=== PATIENT | male | born 1965 | race Caucasian/White ===

== ENCOUNTER 2017-04-24 07:14 | Emergency (ER) | payer OTHER ==
[~2017-04-24] VITALS: Ht 167.6 cm; Wt 78.1 kg
[~2017-04-24 07:14] MED LIST: ADV500INH INH; ALBU17IN INH; ALBU83IN INH; AZIT500T2 PO; MUCI600T37 PO; NICO14DI20 TD; PRED10TA PO
[2017-04-24] MEDS ORDERED: methylPREDNISolone INJ 125 MG/2 ML VIAL (J2930) IV ONE (07:45)
[2017-04-24] MEDS: IPRATROPIUM 0.5MG/ALBUTEROL 2.5MG INH SOL UD 3ML (DUONEB)(J7620) NEB PRN ×3 (07:58→08:17)
[2017-04-24] MEDS: IPRATROPIUM 0.5MG/ALBUTEROL 2.5MG INH SOL UD 3ML (DUONEB)(J7620) NEB SCH ×3 (09:36→09:56)
[2017-04-24 11:14] VITALS: O2SAT 92
[2017-04-24] MEDS ORDERED: PRED20TA PO (11:34)
[2017-04-24 11:38] VITALS: BP 113/65
== END 2017-04-24 11:44 | disposition home or self-care (01) ==
LOC: M ED 07:14
DX: J45.901 Unspecified asthma with (acute) exacerbation (principal)
CPT/HCPCS: 36415; 93041; 94640; 94760; 96374; 99285; J2930

== ENCOUNTER 2019-11-29 09:46 | Emergency (ER) | payer OTHER ==
[~2019-11-29] VITALS: Ht 167.6 cm; Wt 77.3 kg
[~2019-11-29 09:46] MED LIST changes: -AZIT500T2 PO; +AZIT500T5 PO; +PRED-351 PO; -PRED10TA PO; +PRED20TA PO
[2019-11-29] MEDS ORDERED: LORA-674 (10:14)
[2019-11-29] MEDS ORDERED: COMBIVENT RESPIMAT 100-20MCG INHALER 4GM INH ONE ×2 (10:30→11:45)
[2019-11-29] MEDS ORDERED: methylPREDNISolone INJ 125 MG/2 ML VIAL (J2930) IV ONE (10:30)
[2019-11-29] MEDS ORDERED: NS 1,000 ML IV ONE (10:30)
[2019-11-29] MEDS ORDERED: AZITHROMYCIN 250MG TABLET PO ONE (10:30)
[2019-11-29 10:54] LABS: VENOUS BASE EXCESS -2.1 (-2.0-2.0); VENOUS HCO3 23.2 MEQ/L (23.0-27.0); VENOUS O2 SATURATION 94.2 % (60.0-80.0); VENOUS PARTIAL PRESSURE CO2 41.7 mmHg (38.0-50.0); VENOUS PARTIAL PRESSURE O2 74.1 mmHg (30.0-50.0); VENOUS PH 7.364 UNITS (7.330-7.430); VENOUS STANDARD HCO3 22.7 MEQ/L; VENOUS TOTAL CO2 24.5 MEQ/L (24.0-28.0)
[2019-11-29 10:58] LABS: BASO # 0.1 10^3/uL (0.0-0.2); BASO % 1.4 % (0.0-1.0); EOS # 0.6 10^3/uL (0.0-0.5); EOS % 6.4 % (0.0-3.0); HEMATOCRIT 46.9 % (42.0-52.0); HEMOGLOBIN 15.9 g/dl (13.5-17.5); LYMPH # 2.3 10^3/uL (1.5-5.0); LYMPH % 27.1 % (24.0-44.0); MEAN CORPUSCULAR HEMOGLOBIN 33.7 pg (27.0-33.0); MEAN CORPUSCULAR HGB CONC 33.9 g/dl (32.0-36.5); MEAN CORPUSCULAR VOLUME 99.4 fl (80.0-96.0); MONO # 0.9 10^3/uL (0.0-0.8); MONO % 10.8 % (0.0-5.0); NEUTROPHILS # 4.6 10^3/uL (1.5-8.5); NEUTROPHILS % 53.7 % (36.0-66.0); PLATELET COUNT, AUTOMATED 231 10^3/uL (150-450); RED BLOOD COUNT 4.72 10^6/uL (4.30-6.10); WHITE BLOOD COUNT 8.6 10^3/uL (4.0-10.0)
--- NOTE | 2019-11-29 11:13 | REP ---
CHEST, SINGLE VIEW: There is no evidence of acute infiltrate. No pleural effusion is seen. The heart is normal in size. The mediastinal silhouette is unremarkable. The visualized osseous structures are intact. IMPRESSION: No acute pulmonary disease. Electronically Signed by Nikolay Jones MD 11/29/2019 04:18 P
[2019-11-29 11:27] LABS: ALT/SGPT 60 U/L (12-78); BILIRUBIN,DIRECT 0.3 MG/DL (0.0-0.2); BILIRUBIN,TOTAL 1.1 MG/DL (0.2-1.0); BLOOD UREA NITROGEN 10 MG/DL (7-18); CALCIUM LEVEL 8.9 MG/DL (8.5-10.1); CARBON DIOXIDE LEVEL 26 MEQ/L (21-32); CHLORIDE LEVEL 108 MEQ/L (98-107); CK-MB VALUE MASS 4.1 NG/ML (<3.6); CPK CREATINE PHOSPHOKINASE 194 U/L (39-308); CREATININE FOR GFR 0.78 MG/DL (0.70-1.30); GLOMERULAR FILTRATION RATE > 60.0 (>56); GLUCOSE, FASTING 100 MG/DL (70-100); MB/CK RELATIVE INDEX 2.11 (< OR =4); NT-PRO BNP 26 PG/ML (<125); POTASSIUM SERUM 4.4 MEQ/L (3.5-5.1); SODIUM LEVEL 141 MEQ/L (136-145); THYROID STIMULATING HORMONE 0.838 uIU/ML (0.358-3.740); TOTAL PROTEIN 7.3 GM/DL (6.4-8.2); TROPONIN I < 0.02 NG/ML (< 0.10)
[2019-11-29] MEDS ORDERED: ALBU1.25 NEB ×2 (12:06→15:34)
[2019-11-29] MEDS ORDERED: AZIT500T5 PO ×2 (12:06→15:34)
[2019-11-29] MEDS ORDERED: PRED20TA PO ×2 (12:06→15:34)
[2019-11-29] MEDS ORDERED: PROAAER10 INH (14:58)
[2019-11-29 15:00] VITALS: BP 135/75
[2019-11-29] MEDS ORDERED: ALBU83IN INH (15:34)
[2019-11-29 16:41] VITALS: O2SAT 90
--- NOTE | 2019-11-30 09:59 | ECGEPIP ---
[facility] - ED Test Date: 2019-11-29 Pat Name: MYRIAM LOMBARDI Department: Room: - Gender: Male Chaperon: ry : 1965 Requested By: ELLIS ADAMS Order Number: [id number] Reading MD: Milton Ashford Measurements Intervals [place] Rate: 91 P: 84 UT: 162 QRS: 88 QRSD: 108 T: 0 QT: 355 QTc: 437 Interpretive Statements SINUS RHYTHM MODERATE INTRAVENTRICULAR CONDUCTION DELAY10/08/15 NONSPECIFIC T-WAVE ABNORMALITY SIMILAR TO 10/08/15 Electronically Signed on 11-30-2019 9:58:39 EDT by Milton Ashford
== END 2019-11-29 15:53 | disposition home or self-care (01) ==
LOC: M ED 09:46
DX: J44.1 Chronic obstructive pulmonary disease with (acute) exacerbation (principal); F17.210 Nicotine dependence, cigarettes, uncomplicated; Z79.51 Long term (current) use of inhaled steroids; Z79.899 Other long term (current) drug therapy
CPT/HCPCS: 36415; 71045; 80048; 80076; 82550; 82553; 82803; 83880; 84443; 84484; 85025; 87040; 87070; 87205; 87486; 87581; 87633; 87798; 93005; 93041; 94640; 94760; 96361; 96374; 99285; J2930; U0002

== ENCOUNTER 2023-03-01 04:05 | Observation (INO) | payer OTHER ==
[~2023-03-01] VITALS: Ht 198.1 cm; Wt 78.9 kg
[~2023-03-01 04:05] MED LIST changes: +ALBU1.25 NEB; +ALBU2.5V10 INH; -ALBU83IN INH; +LORA-674 PO; +PROAAER10 INH
[2023-03-01] MEDS: IPRATROPIUM 0.5MG/ALBUTEROL 2.5MG INH SOL UD 3ML (DUONEB) NEB PRN ×2 (04:53→04:55)
[2023-03-01 05:16] LABS: BASO # 0.1 10^3/uL (0.0-0.2); BASO % 1.3 % (0.0-1.0); EOS # 0.8 10^3/uL (0.0-0.5); EOS % 7.7 % (0.0-3.0); HEMATOCRIT 46.4 % (42.0-52.0); HEMOGLOBIN 15.7 g/dl (13.5-17.5); LYMPH # 1.7 10^3/uL (1.5-5.0); MEAN CORPUSCULAR HEMOGLOBIN 34.1 pg (27.0-33.0); MEAN CORPUSCULAR HGB CONC 33.8 g/dl (32.0-36.5); MEAN CORPUSCULAR VOLUME 100.7 fl (80.0-96.0); MONO # 0.9 10^3/uL (0.0-0.8); MONO % 8.9 % (2.0-8.0); NEUTROPHILS # 6.3 10^3/uL (1.5-8.5); NEUTROPHILS % 64.7 % (36.0-66.0); PLATELET COUNT, AUTOMATED 252 10^3/uL (150-450); RED BLOOD COUNT 4.61 10^6/uL (4.30-6.10); WHITE BLOOD COUNT 9.7 10^3/uL (4.0-10.0)
[2023-03-01 05:25] LABS: ALBUMIN 4.2 G/DL (3.2-5.2); ALKALINE PHOSPHATASE 63 U/L (46-116); ALT/SGPT 38 U/L (7.0-40); AST/SGOT 23 U/L (<34); BILIRUBIN,DIRECT 0.5 MG/DL (<0.4); BILIRUBIN,TOTAL 1.5 MG/DL (0.3-1.2); BLOOD UREA NITROGEN 10 MG/DL (9-23); CARBON DIOXIDE LEVEL 24 MMOL/L (20-31); CHLORIDE LEVEL 107 MMOL/L (98-107); CREATININE FOR GFR 0.65 MG/DL (0.70-1.30); GLOMERULAR FILTRATION RATE > 60.0 (>56); GLUCOSE, FASTING 107 MG/DL (60-100); POTASSIUM SERUM 4.3 MMOL/L (3.5-5.1); SODIUM LEVEL 141 MMOL/L (136-145); TOTAL PROTEIN 7.2 G/DL (5.7-8.2)
[2023-03-01] MEDS ORDERED: MAG SULF 1GM/100ML (MAG RUN) 2 GM in IV 1 EA IV ONE (05:50)
[2023-03-01 06:35] LABS: ABG BASE EXCESS 0.4 (-2.0-2.0); ABG HCO3 24.6 MMOL/L (22.0-26.0); ABG O2 SATURATION 92.5 % (95.0-99.0); ABG PARTIAL PRESSURE CO2 38.4 mmHg (35.0-45.0); ABG STANDARD HCO3 24.7 MMOL/L. (22.0-26.0); ABG TOTAL CO2 25.8 MMOL/L (22.0-29.0); ABG pH (ARTERIAL) 7.424 UNITS (7.350-7.450)
[2023-03-01] MEDS ORDERED: IPRATROPIUM 0.5MG/ALBUTEROL 2.5MG INH SOL UD 3ML (DUONEB) NEB ONE (07:35)
[2023-03-01] MEDS ORDERED: ACETAMINOPHEN TAB 650MG DOSE (2X325MG) PO PRN (08:05)
[2023-03-01] MEDS ORDERED: ALBUTEROL SULFATE 2.5MG/0.5ML INH NEB SOLN NEB PRN (08:05)
[2023-03-01] MEDS ORDERED: MED REC IN PROGRESS XX SCH (08:10)
[2023-03-01] MEDS ORDERED: HOME MED LIST COMPLETE! XX SCH (08:45)
[2023-03-01] MEDS ORDERED: predniSONE 20 MG TAB PO SCH (09:00)
[2023-03-01] MEDS ORDERED: LORATADINE 10 MG TAB PO PRN (10:15)
[2023-03-01 10:16] LABS: INR 0.91; PARTIAL THROMBOPLASTIN TIME 29.9 SECONDS (24.8-34.2); PROTHROMBIN TIME 12.4 SECONDS (12.5-14.5)
[2023-03-01] MEDS: IPRATROPIUM 0.5MG/ALBUTEROL 2.5MG INH SOL UD 3ML (DUONEB) NEB SCH ×4 (11:29→20:54)
[2023-03-01] MEDS: ENOXAPARIN 40MG/0.4ML SYRINGE (J1650 PER 10MG) SC SCH (11:29)
[2023-03-01 11:40] LABS: D-DIMER QUANT 319.3 ng/ml (<500)
[2023-03-01] MEDS: ADVAIR HFA 230/21MCG INHALER INH SCH ×2 (11:53→20:54)
[2023-03-01 13:30] VITALS: BP 143/89; TEMP 98.2; O2SAT 93
[2023-03-01 20:00] VITALS: BP 119/66; TEMP 98.1; O2SAT 92
[2023-03-01 21:33] VITALS: O2SAT 93
[2023-03-02 05:34] LABS: HEMATOCRIT 42.2 % (42.0-52.0); HEMOGLOBIN 14.4 g/dl (13.5-17.5); MEAN CORPUSCULAR HEMOGLOBIN 33.9 pg (27.0-33.0); MEAN CORPUSCULAR HGB CONC 34.1 g/dl (32.0-36.5); MEAN CORPUSCULAR VOLUME 99.3 fl (80.0-96.0); PLATELET COUNT, AUTOMATED 224 10^3/uL (150-450); RED BLOOD COUNT 4.25 10^6/uL (4.30-6.10); WHITE BLOOD COUNT 19.3 10^3/uL (4.0-10.0)
[2023-03-02 06:00] VITALS: BP 115/65; TEMP 98.4; O2SAT 93
[2023-03-02 06:17] LABS: ALBUMIN 3.5 G/DL (3.2-5.2); ALKALINE PHOSPHATASE 57 U/L (46-116); ALT/SGPT 27 U/L (7.0-40); AST/SGOT 10 U/L (<34); BILIRUBIN,TOTAL 0.8 MG/DL (0.3-1.2); BLOOD UREA NITROGEN 12 MG/DL (9-23); CALCIUM LEVEL 8.8 MG/DL (8.5-10.1); CARBON DIOXIDE LEVEL 24 MMOL/L (20-31); CHLORIDE LEVEL 107 MMOL/L (98-107); CREATININE FOR GFR 0.61 MG/DL (0.70-1.30); GLOMERULAR FILTRATION RATE > 60.0 (>56); GLUCOSE, FASTING 134 MG/DL (60-100); POTASSIUM SERUM 4.3 MMOL/L (3.5-5.1); SODIUM LEVEL 139 MMOL/L (136-145); TOTAL PROTEIN 6.3 G/DL (5.7-8.2)
[2023-03-02] MEDS: ADVAIR HFA 230/21MCG INHALER INH SCH (07:10)
[2023-03-02] MEDS: IPRATROPIUM 0.5MG/ALBUTEROL 2.5MG INH SOL UD 3ML (DUONEB) NEB SCH ×2 (07:10→11:12)
[2023-03-02] MEDS: ENOXAPARIN 40MG/0.4ML SYRINGE (J1650 PER 10MG) SC SCH (08:37)
[2023-03-02] MEDS ORDERED: PRED20TA PO (10:47)
[2023-03-02 11:00] VITALS: O2SAT 92
[2023-03-02] MEDS ORDERED: ALBU1.25 NEB (11:56)
== END 2023-03-02 12:16 | disposition home or self-care (01) ==
LOC: M ED 04:05 → M ED INP 08:03 → ENRESERV 12:09 → M MSPAV 13:06
PROVIDERS: ADMIT Internal Medicine; ATTEND Internal Medicine
DX: J44.1 Chronic obstructive pulmonary disease with (acute) exacerbation (principal); R09.02 Hypoxemia; J45.40 Moderate persistent asthma, uncomplicated; R06.02 Shortness of breath; F17.219 Nicotine dependence, cigarettes, with unspecified nicotine-induced disorders; Z79.51 Long term (current) use of inhaled steroids
CPT/HCPCS: 36415; 36600; 71045; 80048; 80053; 80076; 82803; 83605; 83880; 84484; 85025; 85027; 85379; 85610; 85730; 87040; 87486; 87581; 87633; 87798; 93005; 93041; 94640; 94760; 96365; 96366; 96372; 96375; 96376; 99285; J1100; J1650; J3475

== ENCOUNTER 2023-08-29 09:04 | Emergency (ER) | payer OTHER ==
[~2023-08-29] VITALS: Ht 167.6 cm; Wt 82.9 kg
[~2023-08-29 09:04] MED LIST changes: +LORA-1041 PO; -LORA-674 PO
[2023-08-29 10:12] LABS: RSV AMPLIFICATION NEGATIVE (NEGATIVE)
[2023-08-29] MEDS ORDERED: dexAMETHasone 20MG/5ML VIAL IV ONE (11:35)
[2023-08-29] MEDS: IPRATROPIUM 0.5MG/ALBUTEROL 2.5MG INH SOL UD 3ML (DUONEB) NEB SCH ×5 (11:45→15:26)
[2023-08-29 12:18] LABS: BLOOD UREA NITROGEN 11 MG/DL (9-23); CARBON DIOXIDE LEVEL 28 MMOL/L (20-31); CHLORIDE LEVEL 107 MMOL/L (98-107); CREATININE FOR GFR 0.69 MG/DL (0.70-1.30); GLOMERULAR FILTRATION RATE > 60.0 (>49); GLUCOSE, FASTING 102 MG/DL (74-106); POTASSIUM SERUM 4.1 MMOL/L (3.5-5.1); SODIUM LEVEL 138 MMOL/L (136-145)
[2023-08-29] MEDS ORDERED: ISOVUE-370 76% 100ML VIAL As Ordered ONE (13:01)
[2023-08-29] MEDS ORDERED: ALBU1.25 INH (14:14)
[2023-08-29] MEDS ORDERED: VENTAER INH (14:14)
[2023-08-29] MEDS ORDERED: HOME MED LIST COMPLETE! XX SCH (14:20)
[2023-08-29] MEDS ORDERED: AZIT500T5 PO (15:32)
[2023-08-29] MEDS ORDERED: PRED10TA2 PO (15:32)
[2023-08-29 15:45] VITALS: BP 139/74; TEMP 98.3; O2SAT 92
== END 2023-08-29 15:59 | disposition home or self-care (01) ==
LOC: M ED 09:04
DX: J44.1 Chronic obstructive pulmonary disease with (acute) exacerbation (principal); F17.210 Nicotine dependence, cigarettes, uncomplicated; F10.10 Alcohol abuse, uncomplicated; Z79.2 Long term (current) use of antibiotics; Z79.52 Long term (current) use of systemic steroids; Z79.51 Long term (current) use of inhaled steroids
CPT/HCPCS: 71046; 71275; 80048; 87486; 87581; 87631; 87633; 87798; 94640; 96374; 99284; J1100; Q9967

== ENCOUNTER 2023-10-02 22:15 | Inpatient (IN) | payer OTHER ==
[~2023-10-02] VITALS: Ht 170.2 cm; Wt 78.0 kg
[~2023-10-02 22:15] MED LIST changes: +ALBU1.25 INH; +PRED10TA2 PO; +VENTAER INH
[2023-10-02 22:49] LABS: BASO # 0.1 10^3/uL (0.0-0.2); BASO % 1.1 % (0.0-1.0); EOS # 0.6 10^3/uL (0.0-0.5); EOS % 6.1 % (0.0-3.0); HEMATOCRIT 43.7 % (42.0-52.0); HEMOGLOBIN 14.7 g/dl (13.5-17.5); LYMPH # 2.1 10^3/uL (1.5-5.0); LYMPH % 22.9 % (24.0-44.0); MEAN CORPUSCULAR HEMOGLOBIN 33.9 pg (27.0-33.0); MEAN CORPUSCULAR HGB CONC 33.6 g/dl (32.0-36.5); MEAN CORPUSCULAR VOLUME 100.7 fl (80.0-96.0); MONO # 0.9 10^3/uL (0.0-0.8); MONO % 9.3 % (2.0-8.0); NEUTROPHILS # 5.5 10^3/uL (1.5-8.5); NEUTROPHILS % 60.2 % (36.0-66.0); PLATELET COUNT, AUTOMATED 252 10^3/uL (150-450); RED BLOOD COUNT 4.34 10^6/uL (4.30-6.10); WHITE BLOOD COUNT 9.1 10^3/uL (4.0-10.0)
[2023-10-02 23:17] LABS: ALBUMIN 3.7 G/DL (3.2-5.2); ALKALINE PHOSPHATASE 63 U/L (46-116); ALT/SGPT 38 U/L (7.0-40); AST/SGOT 21 U/L (<34); BILIRUBIN,DIRECT 0.4 MG/DL (<0.4); BILIRUBIN,TOTAL 1.3 MG/DL (0.3-1.2); BLOOD UREA NITROGEN 12 MG/DL (9-23); CALCIUM LEVEL 8.6 MG/DL (8.3-10.6); CARBON DIOXIDE LEVEL 26 MMOL/L (20-31); CHLORIDE LEVEL 109 MMOL/L (98-107); CREATININE FOR GFR 0.71 MG/DL (0.70-1.30); GLOMERULAR FILTRATION RATE > 60.0 (>49); GLUCOSE, FASTING 114 MG/DL (74-106); SODIUM LEVEL 138 MMOL/L (136-145); TOTAL PROTEIN 6.6 G/DL (5.7-8.2)
[2023-10-02 23:40] LABS: CK-MB VALUE MASS 1.1 NG/ML (<3.6)
[2023-10-02 23:42] LABS: CPK CREATINE PHOSPHOKINASE 128 U/L (46-171); MB/CK RELATIVE INDEX 0.85 (< OR =4)
[2023-10-03] MEDS: IPRATROPIUM 0.5MG/ALBUTEROL 2.5MG INH SOL UD 3ML (DUONEB) NEB SCH ×2 (04:42→08:42)
[2023-10-03] MEDS: methylPREDNISolone 125MG 2ML VIAL IV ONE (04:51)
[2023-10-03 05:00] LABS: VENOUS BASE EXCESS -2.7 (-2.0-2.0); VENOUS HCO3 23.5 MMOL/L (23.0-27.0); VENOUS O2 SATURATION 88.1 % (60.0-80.0); VENOUS PARTIAL PRESSURE CO2 46.1 mmHg (38.0-50.0); VENOUS PARTIAL PRESSURE O2 55.2 mmHg (30.0-50.0); VENOUS PH 7.326 UNITS (7.330-7.430)
[2023-10-03] MEDS ORDERED: guaiFENesin DM LIQ 10ML UD PO PRN (07:55)
[2023-10-03] MEDS: ADVAIR HFA 230/21MCG INHALER INH SCH (08:41)
[2023-10-03 09:01] LABS: INR 0.99; PARTIAL THROMBOPLASTIN TIME 28.4 SECONDS (24.8-34.2); PROTHROMBIN TIME 12.8 SECONDS (12.5-14.5)
[2023-10-03] MEDS: AZITHROMYCIN 250MG TABLET PO SCH (09:02)
[2023-10-03] MEDS ORDERED: HOME MED LIST COMPLETE! XX SCH (09:15)
[2023-10-03] MEDS: methylPREDNISolone 40MG 1ML VIAL IV SCH (11:55)
[2023-10-03 15:00] VITALS: BP 104/76; TEMP 97; O2SAT 90
[2023-10-03] MEDS: RIVAROXABAN 10MG TAB (XARELTO) PO SCH (17:40)
[2023-10-03 19:20] VITALS: O2SAT 90
[2023-10-03 19:29] VITALS: BP 116/74; TEMP 97.9; O2SAT 95
[2023-10-03 23:16] VITALS: O2SAT 93
[2023-10-04 05:21] VITALS: BP 115/71; TEMP 98.1; O2SAT 91
[2023-10-04 10:27] VITALS: BP 114/77
[2023-10-04] MEDS ORDERED: PRED10TA2 PO (11:28)
[2023-10-04] MEDS ORDERED: AZIT500T5 PO (11:28)
[2023-10-04] MEDS ORDERED: GUAI10LI PO (11:28)
== END 2023-10-04 12:40 | disposition home or self-care (01) | DRG 190 ==
LOC: M ED 22:15 → M ED INP 10-03 07:54 → ENRESERV 10-03 14:16 → M MS5PR 10-03 15:00
PROVIDERS: ADMIT Internal Medicine Nephrology; ATTEND Internal Medicine Nephrology
DX: J44.1 Chronic obstructive pulmonary disease with (acute) exacerbation (principal); J96.01 Acute respiratory failure with hypoxia; J45.901 Unspecified asthma with (acute) exacerbation; F17.200 Nicotine dependence, unspecified, uncomplicated; Z71.6 Tobacco abuse counseling; Z79.899 Other long term (current) drug therapy; Z11.52 Encounter for screening for COVID-19

== ENCOUNTER 2023-11-22 18:51 | Observation (INO) | payer OTHER ==
[~2023-11-22] VITALS: Ht 167.6 cm; Wt 84.0 kg
[~2023-11-22 18:51] MED LIST changes: +GUAI10LI PO
[2023-11-22 19:28] LABS: VENOUS BASE EXCESS -0.9 (-2.0-2.0); VENOUS HCO3 24.7 MMOL/L (23.0-27.0); VENOUS O2 SATURATION 86.6 % (60.0-80.0); VENOUS PARTIAL PRESSURE CO2 44.4 mmHg (38.0-50.0); VENOUS PARTIAL PRESSURE O2 51.9 mmHg (30.0-50.0); VENOUS PH 7.364 UNITS (7.330-7.430); VENOUS STANDARD HCO3 23.5 MMOL/L; VENOUS TOTAL CO2 26.1 MMOL/L (24.0-28.0)
[2023-11-22 19:42] LABS: BASO # 0.2 10^3/uL (0.0-0.2); BASO % 1.9 % (0.0-1.0); EOS # 0.9 10^3/uL (0.0-0.5); EOS % 10.3 % (0.0-3.0); HEMATOCRIT 43.4 % (42.0-52.0); HEMOGLOBIN 14.7 g/dl (13.5-17.5); LYMPH # 2.9 10^3/uL (1.5-5.0); LYMPH % 34.7 % (24.0-44.0); MEAN CORPUSCULAR HEMOGLOBIN 34.4 pg (27.0-33.0); MEAN CORPUSCULAR HGB CONC 33.9 g/dl (32.0-36.5); MEAN CORPUSCULAR VOLUME 101.6 fl (80.0-96.0); MONO # 0.9 10^3/uL (0.0-0.8); MONO % 10.6 % (2.0-8.0); NEUTROPHILS # 3.5 10^3/uL (1.5-8.5); NEUTROPHILS % 41.9 % (36.0-66.0); PLATELET COUNT, AUTOMATED 233 10^3/uL (150-450); RED BLOOD COUNT 4.27 10^6/uL (4.30-6.10); WHITE BLOOD COUNT 8.4 10^3/uL (4.0-10.0)
[2023-11-22] MEDS: methylPREDNISolone 125MG 2ML VIAL IV ONE (19:47)
[2023-11-22 20:00] LABS: C REACTIVE PROTEIN QUANTITATIV < 0.40 MG/DL (<1.0)
[2023-11-22 20:01] LABS: ALBUMIN 3.7 G/DL (3.2-5.2); ALKALINE PHOSPHATASE 60 U/L (46-116); ALT/SGPT 34 U/L (7.0-40); AST/SGOT 21 U/L (<34); BILIRUBIN,DIRECT 0.3 MG/DL (<0.4); BILIRUBIN,TOTAL 0.8 MG/DL (0.3-1.2); BLOOD UREA NITROGEN 10 MG/DL (9-23); CALCIUM LEVEL 9.1 MG/DL (8.3-10.6); CARBON DIOXIDE LEVEL 28 MMOL/L (20-31); CHLORIDE LEVEL 108 MMOL/L (98-107); CK-MB VALUE MASS 1.3 NG/ML (<3.6); CREATININE FOR GFR 0.72 MG/DL (0.70-1.30); GLOMERULAR FILTRATION RATE > 60.0 (>49); GLUCOSE, FASTING 104 MG/DL (74-106); POTASSIUM SERUM 4.1 MMOL/L (3.5-5.1); SODIUM LEVEL 141 MMOL/L (136-145); TOTAL PROTEIN 6.6 G/DL (5.7-8.2)
[2023-11-22 20:13] LABS: PROCALCITONIN 0.05 ng/ml
[2023-11-22 20:16] LABS: CPK CREATINE PHOSPHOKINASE 138 U/L (46-171); MB/CK RELATIVE INDEX 0.94 (< OR =4)
[2023-11-22] MEDS: IPRATROPIUM 0.5MG/ALBUTEROL 2.5MG INH SOL UD 3ML (DUONEB) NEB ONE ×3 (20:31→21:30)
[2023-11-22] MEDS ORDERED: ISOVUE-370 76% 100ML VIAL As Ordered ONE (21:59)
[2023-11-22] MEDS ORDERED: LORA-930 PO (22:49)
[2023-11-22] MEDS ORDERED: HOME MED LIST COMPLETE! XX SCH (22:50)
[2023-11-23] VITALS (7 sets, daily range): BP systolic 108–161; BP diastolic 61–98; TEMP 97.9–98.8; O2SAT 88–92
[2023-11-23] MEDS ORDERED: ALBUTEROL SULFATE 2.5MG/0.5ML INH NEB SOLN NEB PRN (01:25)
[2023-11-23] MEDS: IPRATROPIUM 0.5MG/ALBUTEROL 2.5MG INH SOL UD 3ML (DUONEB) NEB SCH (02:00)
[2023-11-23] MEDS: methylPREDNISolone 40MG 1ML VIAL IV SCH ×2 (02:33→16:10)
[2023-11-23] MEDS: NS 500 ML IV SCH (02:34)
[2023-11-23 06:39] LABS: BLOOD UREA NITROGEN 15 MG/DL (9-23); CALCIUM LEVEL 9.1 MG/DL (8.3-10.6); CARBON DIOXIDE LEVEL 25 MMOL/L (20-31); CHLORIDE LEVEL 107 MMOL/L (98-107); CREATININE FOR GFR 0.65 MG/DL (0.70-1.30); GLOMERULAR FILTRATION RATE > 60.0 (>49); GLUCOSE, FASTING 148 MG/DL (74-106); POTASSIUM SERUM 4.5 MMOL/L (3.5-5.1); SODIUM LEVEL 140 MMOL/L (136-145)
[2023-11-23] MEDS ORDERED: LORATADINE 10 MG TAB PO PRN (07:05)
[2023-11-23] MEDS: ADVAIR HFA 230/21MCG INHALER INH SCH (07:23)
[2023-11-23] MEDS: amLODIPine 5 MG TAB PO SCH (13:18)
[2023-11-24 06:00] VITALS: BP 121/66; TEMP 98.2; O2SAT 90
[2023-11-24 06:09] LABS: BASO % 0.1 % (0.0-1.0); HEMATOCRIT 41.8 % (42.0-52.0); LYMPH % 6.1 % (24.0-44.0); MEAN CORPUSCULAR HEMOGLOBIN 33.7 pg (27.0-33.0); MEAN CORPUSCULAR HGB CONC 33.5 g/dl (32.0-36.5); MEAN CORPUSCULAR VOLUME 100.5 fl (80.0-96.0); MONO # 0.8 10^3/uL (0.0-0.8); NEUTROPHILS # 13.9 10^3/uL (1.5-8.5); PLATELET COUNT, AUTOMATED 228 10^3/uL (150-450); RED BLOOD COUNT 4.16 10^6/uL (4.30-6.10); WHITE BLOOD COUNT 15.8 10^3/uL (4.0-10.0)
[2023-11-24 06:37] LABS: BLOOD UREA NITROGEN 15 MG/DL (9-23); CARBON DIOXIDE LEVEL 24 MMOL/L (20-31); CHLORIDE LEVEL 107 MMOL/L (98-107); CREATININE FOR GFR 0.65 MG/DL (0.70-1.30); GLOMERULAR FILTRATION RATE > 60.0 (>49); GLUCOSE, FASTING 123 MG/DL (74-106); MAGNESIUM LEVEL 2.1 MG/DL (1.8-2.4); POTASSIUM SERUM 4.1 MMOL/L (3.5-5.1); SODIUM LEVEL 140 MMOL/L (136-145)
[2023-11-24] MEDS: ENOXAPARIN 40MG/0.4ML SYRINGE (J1650 PER 10MG) SC SCH (09:00)
[2023-11-24 09:02] VITALS: BP 129/66
[2023-11-24] MEDS ORDERED: PRED10TA2 PO (09:33)
[2023-11-24] MEDS ORDERED: VENTAER INH (09:33)
[2023-11-24 10:00] VITALS: O2SAT 91
[2023-11-24 10:02] VITALS: O2SAT 93
[2023-11-24 10:05] VITALS: O2SAT 94
[2023-11-24] MEDS ORDERED: predniSONE 20 MG TAB PO ONE (12:00)
== END 2023-11-24 10:59 | disposition home or self-care (01) ==
LOC: M ED 18:51 → M ED INP 18:52 → M MSPAV 11-23 01:20
PROVIDERS: ADMIT Internal Medicine; ATTEND Internal Medicine
DX: J44.1 Chronic obstructive pulmonary disease with (acute) exacerbation (principal); I10 Essential (primary) hypertension; F17.200 Nicotine dependence, unspecified, uncomplicated; R06.02 Shortness of breath; Z79.51 Long term (current) use of inhaled steroids
CPT/HCPCS: 36415; 71045; 71275; 80048; 80076; 82550; 82553; 82803; 83735; 83880; 84145; 84484; 85025; 86140; 87486; 87581; 87633; 87798; 93005; 93041; 94640; 94760; 96372; 96374; 96376; 99285; J1650; J2919; Q9967

== ENCOUNTER 2024-01-28 05:55 | Inpatient (IN) | payer OTHER ==
[~2024-01-28] VITALS: Ht 167.6 cm; Wt 81.3 kg
[~2024-01-28 05:55] MED LIST changes: +LORA-930 PO
[2024-01-28] MEDS ORDERED: TREL1AER PO (06:32)
[2024-01-28 06:46] LABS: VENOUS BASE EXCESS 0.4 (-2.0-2.0); VENOUS HCO3 25.9 MMOL/L (23.0-27.0); VENOUS O2 SATURATION 77.4 % (60.0-80.0); VENOUS PARTIAL PRESSURE CO2 44.6 mmHg (38.0-50.0); VENOUS PH 7.382 UNITS (7.330-7.430); VENOUS STANDARD HCO3 24.3 MMOL/L; VENOUS TOTAL CO2 27.3 MMOL/L (24.0-28.0)
[2024-01-28 06:58] LABS: BASO # 0.1 10^3/uL (0.0-0.2); BASO % 1.6 % (0.0-1.0); EOS # 0.8 10^3/uL (0.0-0.5); EOS % 13.5 % (0.0-3.0); HEMATOCRIT 45.9 % (42.0-52.0); HEMOGLOBIN 15.4 g/dl (13.5-17.5); LYMPH # 1.7 10^3/uL (1.5-5.0); LYMPH % 26.6 % (24.0-44.0); MEAN CORPUSCULAR HEMOGLOBIN 33.6 pg (27.0-33.0); MEAN CORPUSCULAR HGB CONC 33.6 g/dl (32.0-36.5); MONO # 0.7 10^3/uL (0.0-0.8); MONO % 11.1 % (2.0-8.0); NEUTROPHILS # 2.9 10^3/uL (1.5-8.5); NEUTROPHILS % 46.7 % (36.0-66.0); PLATELET COUNT, AUTOMATED 252 10^3/uL (150-450); RED BLOOD COUNT 4.59 10^6/uL (4.30-6.10); WHITE BLOOD COUNT 6.2 10^3/uL (4.0-10.0)
[2024-01-28 07:31] LABS: CPK CREATINE PHOSPHOKINASE 128 U/L (46-171)
[2024-01-28 07:32] LABS: ALBUMIN 3.9 G/DL (3.2-5.2); ALKALINE PHOSPHATASE 62 U/L (46-116); ALT/SGPT 32 U/L (7.0-40); AST/SGOT 18 U/L (<34); BILIRUBIN,DIRECT 0.6 MG/DL (<0.4); BILIRUBIN,TOTAL 2.3 MG/DL (0.3-1.2); BLOOD UREA NITROGEN 8 MG/DL (9-23); CALCIUM LEVEL 8.9 MG/DL (8.3-10.6); CARBON DIOXIDE LEVEL 25 MMOL/L (20-31); CHLORIDE LEVEL 108 MMOL/L (98-107); CREATININE FOR GFR 0.71 MG/DL (0.70-1.30); GLOMERULAR FILTRATION RATE > 60.0 (>49); GLUCOSE, FASTING 105 MG/DL (74-106); MB/CK RELATIVE INDEX 0.78 (< OR =4); POTASSIUM SERUM 4.8 MMOL/L (3.5-5.1); SODIUM LEVEL 139 MMOL/L (136-145); TOTAL PROTEIN 6.9 G/DL (5.7-8.2)
[2024-01-28] MEDS: ALBUTEROL SULFATE 2.5MG/0.5ML INH NEB SOLN INH ONE (07:53)
[2024-01-28] MEDS: IPRATROPIUM 0.5MG/ALBUTEROL 2.5MG INH SOL UD 3ML (DUONEB) NEB ONE ×2 (07:53→09:19)
[2024-01-28] MEDS: methylPREDNISolone 125MG 2ML VIAL IV ONE (07:54)
[2024-01-28] MEDS: BUDESONIDE 0.5 MG/2 ML INHALATION SUSPENSION NEB SCH (08:00)
[2024-01-28] MEDS: FORMOTEROL FUMARATE 20 MCG/2 ML INHALATION SOLUTION (PERFOROMIST) NEB SCH (08:00)
[2024-01-28 08:28] LABS: CK-MB VALUE MASS 1.2 NG/ML (<3.6)
[2024-01-28 08:30] LABS: CPK CREATINE PHOSPHOKINASE 131 U/L (46-171); MB/CK RELATIVE INDEX 0.91 (< OR =4)
[2024-01-28] MEDS ORDERED: HOME MED LIST COMPLETE! XX SCH (10:10)
[2024-01-28] MEDS ORDERED: GUAI5EL PO (10:14)
[2024-01-28 11:15] VITALS: BP 135/85; TEMP 97.3; O2SAT 92
[2024-01-28] MEDS: AZITHROMYCIN 250MG TABLET PO SCH (11:23)
[2024-01-28] MEDS: predniSONE 20 MG TAB PO SCH (11:23)
[2024-01-28] MEDS ORDERED: ACETAMINOPHEN TAB 650MG DOSE (2X325MG) PO PRN (12:15)
[2024-01-28] MEDS ORDERED: MAALOX 30 ML SUSP *UDC PO PRN (12:15)
[2024-01-28] MEDS ORDERED: MOM 30ML SUSPENSION UDC PO PRN (12:15)
[2024-01-28] MEDS: ENOXAPARIN 40MG/0.4ML SYRINGE (J1650 PER 10MG) SC SCH (12:44)
[2024-01-28] MEDS: guaiFENesin ER TABLET 600 MG TAB PO SCH (12:44)
[2024-01-28] MEDS: IPRATROPIUM 0.5MG/ALBUTEROL 2.5MG INH SOL UD 3ML (DUONEB) NEB SCH (13:47)
[2024-01-28 16:00] VITALS: BP 115/70; TEMP 97.3; O2SAT 92
[2024-01-28 20:00] VITALS: TEMP 97; O2SAT 91
[2024-01-28 20:36] VITALS: BP 122/69; TEMP 97; O2SAT 91
[2024-01-28 23:00] VITALS: BP 124/72; TEMP 97.3; O2SAT 92
[2024-01-29] VITALS (14 sets, daily range): BP systolic 114–124; BP diastolic 63–73; TEMP 97.3–97.5; O2SAT 90–99
[2024-01-29 06:39] LABS: ALBUMIN 3.6 G/DL (3.2-5.2); ALKALINE PHOSPHATASE 57 U/L (46-116); ALT/SGPT 26 U/L (7.0-40); AST/SGOT 10 U/L (<34); BILIRUBIN,TOTAL 1.6 MG/DL (0.3-1.2); BLOOD UREA NITROGEN 16 MG/DL (9-23); CALCIUM LEVEL 8.8 MG/DL (8.3-10.6); CARBON DIOXIDE LEVEL 24 MMOL/L (20-31); CHLORIDE LEVEL 107 MMOL/L (98-107); CREATININE FOR GFR 0.73 MG/DL (0.70-1.30); GLOMERULAR FILTRATION RATE > 60.0 (>49); GLUCOSE, FASTING 116 MG/DL (74-106); POTASSIUM SERUM 4.3 MMOL/L (3.5-5.1); SODIUM LEVEL 138 MMOL/L (136-145); TOTAL PROTEIN 6.3 G/DL (5.7-8.2)
[2024-01-29 08:24] LABS: PROCALCITONIN <0.04 ng/ml
[2024-01-29] MEDS ORDERED: ALBUTEROL SULFATE 2.5MG/0.5ML INH NEB SOLN NEB PRN (09:45)
[2024-01-29] MEDS: methylPREDNISolone 125MG 2ML VIAL IV SCH (20:59)
[2024-01-30 00:14] VITALS: BP 125/75; TEMP 97.2; O2SAT 90
[2024-01-30 03:58] VITALS: BP 111/62; TEMP 98.1; O2SAT 91
[2024-01-30 05:56] LABS: HEMATOCRIT 44.4 % (42.0-52.0); HEMOGLOBIN 14.7 g/dl (13.5-17.5); MEAN CORPUSCULAR HEMOGLOBIN 33.8 pg (27.0-33.0); MEAN CORPUSCULAR HGB CONC 33.1 g/dl (32.0-36.5); MEAN CORPUSCULAR VOLUME 102.1 fl (80.0-96.0); PLATELET COUNT, AUTOMATED 253 10^3/uL (150-450); RED BLOOD COUNT 4.35 10^6/uL (4.30-6.10); WHITE BLOOD COUNT 11.5 10^3/uL (4.0-10.0)
[2024-01-30 06:14] LABS: ALBUMIN 3.7 G/DL (3.2-5.2); ALKALINE PHOSPHATASE 59 U/L (46-116); ALT/SGPT 28 U/L (7.0-40); AST/SGOT 14 U/L (<34); BLOOD UREA NITROGEN 17 MG/DL (9-23); CALCIUM LEVEL 9.1 MG/DL (8.3-10.6); CARBON DIOXIDE LEVEL 25 MMOL/L (20-31); CHLORIDE LEVEL 107 MMOL/L (98-107); CREATININE FOR GFR 0.71 MG/DL (0.70-1.30); GLOMERULAR FILTRATION RATE > 60.0 (>49); GLUCOSE, FASTING 126 MG/DL (74-106); POTASSIUM SERUM 4.8 MMOL/L (3.5-5.1); SODIUM LEVEL 140 MMOL/L (136-145); TOTAL PROTEIN 6.6 G/DL (5.7-8.2)
[2024-01-30 08:00] VITALS: BP 115/67; TEMP 97.3; O2SAT 91
== END 2024-01-30 10:48 | disposition home or self-care (01) | DRG 192 ==
LOC: M ED 05:55 → M ED INP 09:45 → INTOOBSV 09:45 → M MSPAV 11:17 → OBSVTOIN 01-29 17:00
PROVIDERS: ADMIT Student in an Organized Health Care Education/Training Program; ATTEND Internal Medicine
DX: J44.1 Chronic obstructive pulmonary disease with (acute) exacerbation (principal); Z87.891 Personal history of nicotine dependence; Z79.52 Long term (current) use of systemic steroids; Z79.899 Other long term (current) drug therapy; Z11.52 Encounter for screening for COVID-19; Z71.6 Tobacco abuse counseling

== ENCOUNTER 2024-04-05 08:03 | Emergency (ER) | payer OTHER ==
[~2024-04-05] VITALS: Ht 167.6 cm; Wt 81.8 kg
[~2024-04-05 08:03] MED LIST changes: +GUAI5EL PO; +TREL1AER PO
[2024-04-05] MEDS ORDERED: FLUT1BLS8 (08:08)
[2024-04-05 09:21] LABS: BASO # 0.1 10^3/uL (0.0-0.2); BASO % 2.1 % (0.0-1.0); EOS # 0.8 10^3/uL (0.0-0.5); EOS % 12.4 % (0.0-3.0); HEMATOCRIT 43.6 % (42.0-52.0); HEMOGLOBIN 14.9 g/dl (13.5-17.5); LYMPH # 2.1 10^3/uL (1.5-5.0); LYMPH % 30.6 % (24.0-44.0); MEAN CORPUSCULAR HEMOGLOBIN 33.6 pg (27.0-33.0); MEAN CORPUSCULAR HGB CONC 34.2 g/dl (32.0-36.5); MEAN CORPUSCULAR VOLUME 98.4 fl (80.0-96.0); MONO # 0.6 10^3/uL (0.0-0.8); MONO % 9.6 % (2.0-8.0); NEUTROPHILS % 44.9 % (36.0-66.0); PLATELET COUNT, AUTOMATED 262 10^3/uL (150-450); RED BLOOD COUNT 4.43 10^6/uL (4.30-6.10); WHITE BLOOD COUNT 6.7 10^3/uL (4.0-10.0)
[2024-04-05 09:37] LABS: CK-MB VALUE MASS < 1.0 NG/ML (<3.6)
[2024-04-05 09:39] LABS: ALBUMIN 3.8 G/DL (3.2-5.2); ALKALINE PHOSPHATASE 64 U/L (46-116); ALT/SGPT 25 U/L (7.0-40); AST/SGOT 14 U/L (<34); BILIRUBIN,DIRECT 0.4 MG/DL (<0.4); BILIRUBIN,TOTAL 1.2 MG/DL (0.3-1.2); BLOOD UREA NITROGEN 10 MG/DL (9-23); CALCIUM LEVEL 9.2 MG/DL (8.3-10.6); CARBON DIOXIDE LEVEL 28 MMOL/L (20-31); CHLORIDE LEVEL 111 MMOL/L (98-107); CPK CREATINE PHOSPHOKINASE 111 U/L (46-171); CREATININE FOR GFR 0.76 MG/DL (0.70-1.30); GLOMERULAR FILTRATION RATE > 60.0 (>49); GLUCOSE, FASTING 103 MG/DL (74-106); POTASSIUM SERUM 4.6 MMOL/L (3.5-5.1); SODIUM LEVEL 141 MMOL/L (136-145); TOTAL PROTEIN 6.9 G/DL (5.7-8.2)
[2024-04-05 10:13] LABS: RSV AMPLIFICATION NEGATIVE (NEGATIVE)
[2024-04-05] MEDS ORDERED: ISOVUE-370 76% 100ML VIAL As Ordered ONE (10:36)
[2024-04-05] MEDS: IPRATROPIUM 0.5MG/ALBUTEROL 2.5MG INH SOL UD 3ML (DUONEB) NEB ONE (11:02)
[2024-04-05] MEDS: methylPREDNISolone 125MG 2ML VIAL IV ONE (11:07)
[2024-04-05 13:29] VITALS: O2SAT 93
[2024-04-05] MEDS ORDERED: PRED20TA PO (13:41)
[2024-04-05 13:51] VITALS: BP 160/85; TEMP 97.2; O2SAT 93
== END 2024-04-05 13:53 | disposition home or self-care (01) ==
LOC: M ED 08:30
DX: J44.1 Chronic obstructive pulmonary disease with (acute) exacerbation (principal); J45.909 Unspecified asthma, uncomplicated; Z87.891 Personal history of nicotine dependence; Z79.899 Other long term (current) drug therapy
CPT/HCPCS: 71045; 71275; 80048; 80076; 82550; 82553; 83880; 84484; 85025; 87486; 87581; 87631; 87633; 87798; 93005; 93041; 94640; 94760; 96374; 99285; J2919; Q9967

== ENCOUNTER 2024-06-10 05:17 | Emergency (ER) | payer OTHER ==
[~2024-06-10] VITALS: Ht 167.6 cm; Wt 86.7 kg
[~2024-06-10 05:17] MED LIST changes: +FLUT1BLS8
[2024-06-10 05:19] VITALS: TEMP 96.8
[2024-06-10] MEDS: IPRATROPIUM 0.5MG/ALBUTEROL 2.5MG INH SOL UD 3ML (DUONEB) NEB PRN (06:46)
[2024-06-10] MEDS: methylPREDNISolone 125MG 2ML VIAL IV ONE (06:47)
[2024-06-10] MEDS: MAG SULF 1GM/100ML (MAG RUN) 1 GM in IV 1 EA IV SCH (09:40)
[2024-06-10 10:00] VITALS: O2SAT 87
[2024-06-10 10:06] VITALS: BP 130/69
[2024-06-10 10:12] VITALS: O2SAT 88
[2024-06-10] MEDS ORDERED: PRED20TA PO (10:20)
== END 2024-06-10 10:29 | disposition home or self-care (01) ==
LOC: M ED 05:17
DX: J44.1 Chronic obstructive pulmonary disease with (acute) exacerbation (principal); R91.8 Other nonspecific abnormal finding of lung field; Z87.891 Personal history of nicotine dependence; Z79.899 Other long term (current) drug therapy
CPT/HCPCS: 71046; 71250; 87486; 87581; 87633; 87798; 94640; 94760; 96374; 96375; 99284; J2919; J3475

== ENCOUNTER 2024-11-17 06:23 | Emergency (ER) | payer OTHER ==
[~2024-11-17] VITALS: Ht 167.6 cm; Wt 83.6 kg
[~2024-11-17 06:23] MED LIST changes: -ADV500INH INH; +ADVA1AER10 INH; -FLUT1BLS8; +FLUT1BLS8 PO; +GUAI10ELDM PO; -GUAI10LI PO
[2024-11-17 07:43] LABS: VENOUS BASE EXCESS 0.9 (-2.0-2.0); VENOUS HCO3 25.9 MMOL/L (23.0-27.0); VENOUS O2 SATURATION 89.2 % (60.0-80.0); VENOUS PARTIAL PRESSURE CO2 42.6 mmHg (38.0-50.0); VENOUS PARTIAL PRESSURE O2 54.4 mmHg (30.0-50.0); VENOUS PH 7.402 UNITS (7.330-7.430); VENOUS TOTAL CO2 27.2 MMOL/L (24.0-28.0)
[2024-11-17 07:48] LABS: BASO # 0.1 10^3/uL (0.0-0.2); EOS # 0.6 10^3/uL (0.0-0.5); EOS % 8.8 % (0.0-3.0); HEMATOCRIT 45.1 % (42.0-52.0); HEMOGLOBIN 15.5 g/dl (13.5-17.5); LYMPH # 2.3 10^3/uL (1.5-5.0); LYMPH % 32.1 % (24.0-44.0); MEAN CORPUSCULAR HEMOGLOBIN 33.4 pg (27.0-33.0); MEAN CORPUSCULAR HGB CONC 34.4 g/dl (32.0-36.5); MEAN CORPUSCULAR VOLUME 97.2 fl (80.0-96.0); MONO # 0.7 10^3/uL (0.0-0.8); MONO % 10.2 % (2.0-8.0); NEUTROPHILS # 3.2 10^3/uL (1.5-8.5); PLATELET COUNT, AUTOMATED 254 10^3/uL (150-450); RED BLOOD COUNT 4.64 10^6/uL (4.30-6.10)
[2024-11-17 08:16] LABS: ALBUMIN 3.8 G/DL (3.2-5.2); ALKALINE PHOSPHATASE 66 U/L (40-129); ALT/SGPT 23 U/L (7.0-40); AST/SGOT 16 U/L (<34); BILIRUBIN,DIRECT 0.4 MG/DL (<0.4); BILIRUBIN,TOTAL 1.6 MG/DL (0.3-1.2); BLOOD UREA NITROGEN 11 MG/DL (9-23); CALCIUM LEVEL 8.7 MG/DL (8.3-10.6); CARBON DIOXIDE LEVEL 25 MMOL/L (20-31); CHLORIDE LEVEL 109 MMOL/L (98-107); CREATININE FOR GFR 0.73 MG/DL (0.70-1.30); GLOMERULAR FILTRATION RATE > 90.0 (>49); GLUCOSE, FASTING 102 MG/DL (74-106); POTASSIUM SERUM 4.8 MMOL/L (3.5-5.1); SODIUM LEVEL 143 MMOL/L (136-145)
[2024-11-17] MEDS: predniSONE 20 MG TAB PO ONE (09:00)
[2024-11-17] MEDS: ALBUTEROL SULFATE 2.5MG/0.5ML INH CONCENTRATE NEB SOLN INH PRN (09:04)
[2024-11-17] MEDS ORDERED: AZIT-12 PO (09:05)
[2024-11-17] MEDS ORDERED: HOME MED LIST COMPLETE! XX SCH (09:05)
[2024-11-17 10:30] VITALS: BP 129/77; TEMP 98; O2SAT 93
== END 2024-11-17 10:53 | disposition home or self-care (01) ==
LOC: M ED 06:23
DX: J44.1 Chronic obstructive pulmonary disease with (acute) exacerbation (principal); J45.909 Unspecified asthma, uncomplicated; Z87.891 Personal history of nicotine dependence
CPT/HCPCS: 71045; 80048; 80076; 82803; 84484; 85025; 87486; 87581; 87633; 87798; 93005; 93041; 94640; 94760; 99285; J7512

== ENCOUNTER 2025-02-08 07:43 | Inpatient (IN) | payer OTHER ==
[~2025-02-08] VITALS: Ht 167.6 cm; Wt 85.6 kg
[~2025-02-08 07:43] MED LIST changes: +AZIT-12 PO; +BUDE0.5S6 INH; +FLUT1BLS8 INH; -FLUT1BLS8 PO; +SALI0.652 NARES; +ZYRT10TA12 PO
[2025-02-08 08:33] LABS: BASO # 0.1 10^3/uL (0.0-0.2); BASO % 1.3 % (0.0-1.0); EOS # 0.8 10^3/uL (0.0-0.5); EOS % 8.4 % (0.0-3.0); LYMPH # 2.1 10^3/uL (1.5-5.0); LYMPH % 21.7 % (24.0-44.0); MONO # 0.7 10^3/uL (0.0-0.8); MONO % 7.2 % (2.0-8.0); NEUTROPHILS # 5.9 10^3/uL (1.5-8.5); NEUTROPHILS % 60.9 % (36.0-66.0); PLATELET COUNT, AUTOMATED 283 10^3/uL (150-450)
[2025-02-08 08:42] LABS: VENOUS BASE EXCESS -1.3 (-2.0-2.0); VENOUS HCO3 23.6 MMOL/L (23.0-27.0); VENOUS O2 SATURATION 97.6 % (60.0-80.0); VENOUS PARTIAL PRESSURE CO2 40.5 mmHg (38.0-50.0); VENOUS PARTIAL PRESSURE O2 99.1 mmHg (30.0-50.0); VENOUS PH 7.384 UNITS (7.330-7.430); VENOUS STANDARD HCO3 23.4 MMOL/L; VENOUS TOTAL CO2 24.9 MMOL/L (24.0-28.0)
[2025-02-08] MEDS: CETIRIZINE 10 MG TAB PO SCH (09:00)
[2025-02-08] MEDS: IPRATROPIUM 0.5 MG/ALBUTEROL 2.5 MG INH SOL UD 3 ML NEB PRN (09:02)
[2025-02-08 09:05] LABS: ALT/SGPT 23 U/L (7.0-40); AST/SGOT 22 U/L (<34); CALCIUM LEVEL 8.8 MG/DL (8.3-10.6); CARBON DIOXIDE LEVEL 25 MMOL/L (20-31); CHLORIDE LEVEL 110 MMOL/L (98-107); CREATININE FOR GFR 0.76 MG/DL (0.70-1.30); GLOMERULAR FILTRATION RATE > 90.0 (>49); POTASSIUM SERUM 4.2 MMOL/L (3.5-5.1); SODIUM LEVEL 144 MMOL/L (136-145)
[2025-02-08] MEDS ORDERED: HOME MED LIST COMPLETE! XX SCH (09:30)
[2025-02-08] MEDS ORDERED: ISOVUE-370 76% 100 ML VIAL As Ordered ONE (12:16)
[2025-02-08] MEDS: AZITHROMYCIN 250 MG TABLET PO SCH (12:55)
[2025-02-08 13:10] LABS: IRON (FE) 91 UG/DL (65-175); PERCENT SATURATION 28.4 % (19.7-50.0)
[2025-02-08 13:12] LABS: VITAMIN B12 LEVEL 350 PG/ML (211-911)
[2025-02-08] MEDS: BUDESONIDE 0.5 MG/2 ML INHALATION SUSPENSION NEB SCH (13:40)
[2025-02-08] MEDS: TIOTROPIUM BROM 2.5MCG/ACTUATION 4GM INH INH SCH (13:41)
[2025-02-08] MEDS: IPRATROPIUM 0.5 MG/ALBUTEROL 2.5 MG INH SOL UD 3 ML NEB SCH (15:46)
[2025-02-08 18:00] VITALS: BP 144/87; TEMP 97.9; O2SAT 92
[2025-02-08 18:03] VITALS: O2SAT 91
[2025-02-08 19:24] VITALS: BP 134/64; TEMP 98.8; O2SAT 90
[2025-02-08 22:00] VITALS: O2SAT 90
[2025-02-08 23:00] VITALS: O2SAT 89
[2025-02-09] VITALS (10 sets, daily range): BP systolic 125–140; BP diastolic 63–70; TEMP 96.8–97.8; O2SAT 91–96
[2025-02-09 06:35] LABS: PLATELET COUNT, AUTOMATED 280 10^3/uL (150-450)
[2025-02-09 07:03] LABS: CALCIUM LEVEL 9.3 MG/DL (8.3-10.6); CARBON DIOXIDE LEVEL 24 MMOL/L (20-31); CHLORIDE LEVEL 106 MMOL/L (98-107); CREATININE FOR GFR 0.70 MG/DL (0.70-1.30); GLOMERULAR FILTRATION RATE > 90.0 (>49); POTASSIUM SERUM 4.3 MMOL/L (3.5-5.1); SODIUM LEVEL 146 MMOL/L (136-145)
[2025-02-09] MEDS: ENOXAPARIN 40 MG/0.4 ML SYRINGE (J1650 PER 10MG) SC SCH (08:51)
[2025-02-09] MEDS: D5W/0.45% SODIUM CHLORIDE 1,000 ML IV SCH (11:28)
[2025-02-10 03:49] VITALS: BP 114/60; TEMP 97; O2SAT 95
[2025-02-10 07:43] LABS: BASO # 0.0 10^3/uL (0.0-0.2); BASO % 0.1 % (0.0-1.0); EOS # 0.0 10^3/uL (0.0-0.5); EOS % 0.0 % (0.0-3.0); LYMPH # 1.0 10^3/uL (1.5-5.0); LYMPH % 7.0 % (24.0-44.0); MONO # 0.8 10^3/uL (0.0-0.8); MONO % 5.5 % (2.0-8.0); NEUTROPHILS # 12.4 10^3/uL (1.5-8.5); NEUTROPHILS % 85.9 % (36.0-66.0); PLATELET COUNT, AUTOMATED 281 10^3/uL (150-450)
[2025-02-10 08:00] VITALS: O2SAT 93
[2025-02-10 08:04] LABS: CALCIUM LEVEL 9.3 MG/DL (8.3-10.6); CARBON DIOXIDE LEVEL 26 MMOL/L (20-31); CHLORIDE LEVEL 107 MMOL/L (98-107); CREATININE FOR GFR 0.74 MG/DL (0.70-1.30); GLOMERULAR FILTRATION RATE > 90.0 (>49); POTASSIUM SERUM 4.8 MMOL/L (3.5-5.1); SODIUM LEVEL 146 MMOL/L (136-145)
[2025-02-10] MEDS ORDERED: IPRA0.00 INH (10:27)
[2025-02-10] MEDS ORDERED: PRED10TA2 PO (10:27)
[2025-02-11] MEDS ORDERED: AZITHROMYCIN 250 MG TABLET PO SCH (09:00)
== END 2025-02-10 13:00 | disposition home or self-care (01) | DRG 191 ==
LOC: M ED 07:43 → M ED INP 12:08 → M MS4PR 17:20
PROVIDERS: ADMIT Internal Medicine; ATTEND Internal Medicine
DX: J44.1 Chronic obstructive pulmonary disease with (acute) exacerbation (principal); E87.0 Hyperosmolality and hypernatremia; D72.829 Elevated white blood cell count, unspecified; Z87.891 Personal history of nicotine dependence; Z79.899 Other long term (current) drug therapy